=== PATIENT | female | born 1945 | race Caucasian/White ===

== ENCOUNTER 2017-01-10 15:17 | Emergency (ER) | payer MEDICARE, OTHER ==
[~2017-01-10] VITALS: Ht 162.6 cm; Wt 90.7 kg
[~2017-01-10 15:17] MED LIST: GLIM1TAB2 PO; METF10002 PO; PARO20TA55 PO; SIMV20TA3 PO
[2017-01-10 16:55] VITALS: BP 185/81
[2017-01-10] MEDS ORDERED: NAPROXEN 250 MG TABLET PO ONE (17:00)
[2017-01-10] MEDS ORDERED: NAPR250T2 PO (18:38)
--- NOTE | 2017-01-10 19:23 | ED.ADGEN ---
Past Medical History Past Medical History: Depression, Diabetes-Type II, Kidney Stone Past Surgical History: Other Additional Past Surgical Histo: kidney "stent" after kidney stone Alcohol Use: None Drug Use: None Adult General Chief Complaint Chief Complaint: LOWER EXTREMITY SWELLING HPI HPI Patient is a 71 year old woman, with a history of type 2 diabetes mellitus with peripheral neuropathy, renal calculi, who presents emergency Department with a complaint of pain and swelling in her right foot. Patient states that yesterday she was standing up, when her foot turned and she heard "a pop". She states that she noted significant swelling in the foot, with tenderness along the underside and lateral aspect of the foot. She states she has pain with any pressure, has been "hobbling along" on the foot since that time. She did use [id number] pain medications at home without relief. She denies any other areas of pain, states she did not fall down when this incident occurred. She states she is compliant with all her medications. Review of Systems Review of Systems Constitutional: Denies fever or chills. [] Eyes: Denies change in visual acuity. [] HENT: Denies nasal congestion or sore throat. [] Respiratory: Denies cough or shortness of breath. [] Cardiovascular: Denies chest pain or edema. [] GI: Denies abdominal pain, nausea, vomiting, bloody stools or diarrhea. [] : Denies dysuria. [] Musculoskeletal: Denies back pain or joint pain. [] Integument: Denies rash. [] Neurologic: Denies headache, focal weakness or sensory changes. [] Endocrine: Denies polyuria or polydipsia. [] Lymphatic: Denies swollen glands. [] Psychiatric: Denies depression or anxiety. [] Current Medications Current Medications Current Medications Medications (Trade) Dose Ordered Sig/Keshav Start Time Stop Time Status Last Admin Dose Admin Naproxen (Naprosyn) 250 mg 1X ONCE 01/10/17 17:00 01/10/17 17:01 DC 01/10/17 17:46 250 MG Allergies Allergies Allergies Coded Allergies Type Severity Reaction Last Updated Verified No Known Drug Allergies 03/30/14 No Physical Exam Physical Exam Constitutional: Well developed, well nourished, no acute distress, non-toxic appearance. [] HENT: Normocephalic, atraumatic, bilateral external ears normal, oropharynx moist, no oral exudates, nose normal. [] Eyes: PERRLA, EOMI, conjunctiva normal, no discharge. [] Neck: Normal range of motion, no tenderness, supple, no stridor. [] Cardiovascular:Heart rate regular rhythm, no murmur, S1, S2, no rubs or gallops. [] Lungs & Thorax: Bilateral breath sounds clear to auscultation, no wheezing, rhonchi, rales. No chest tenderness or crepitus. [] Abdomen: Bowel sounds normal, soft, no tenderness, no masses, no pulsatile masses. [] Skin: Warm, dry, no erythema, no rash. [] Back: No tenderness, no CVA tenderness. [] Extremities: Patient with swelling noted from the midfoot extending up towards the ankle, most significantly in the dorsal aspect of the foot. Patient able to range the foot without issue, but has pain with weightbearing, unable to tolerate ambulation. Patient also swelling noted in the ankle, other is no bony point tenderness in this area. No external signs of trauma, no lesions. Patient with tenderness throughout the midfoot. No crepitus No cyanosis, no clubbing, no other Neurologic: Alert and oriented X 3, normal motor function, normal sensory function, no focal deficits noted. [] Psychologic: Affect normal, judgement normal, mood normal. [] EKG EKG Not indicated. [] Radiology/Procedures Radiology/Procedures Right ankle x-ray: Three-view: No fracture or subluxation identified, degenerative changes noted, no acute soft tissue or bony abnormalities. As interpreted by me. Right foot x-ray: Three-view: No fracture subluxation identified, patient with degenerative changes, no acute bony abnormalities. Mild soft tissue swelling. As interpreted by me.[] Course & Med Decision Making Course & Med Decision Making Pertinent Labs and Imaging studies reviewed. (See chart for details) Patient's examination is concerning for sprain versus fracture. X-ray obtained of the ankle and foot dislocation patient's pain and injuries. Patient is noted to have some mild neuropathy, although sensation is intact during my examination. X-rays reveal evidence of degenerative changes but no acute fracture. Patient had an Abraham wrap applied in the ED for a sprain, did attempt to ambulate with crutches, but was experiencing difficulty, concern for her ability to ambulate safely using crutches. After discussion, patient was written a prescription for a rolling knee walker, instructed to proceed to the 24-hour [facility] pharmacy in order to fill the prescription, and potentially rent this device for use until she is able to follow-up with orthopedics for additional evaluation. Patient states she will follow-up with her doctor later this week, and was also in contact information for Dr. Altman of orthopedics for additional evaluation as needed. Patient instructed to continue use over-the -counter acetaminophen, and naproxen as directed, she was given clear and detailed medication and return precautions with which she voiced understanding and agreement. Patient discharged home in stable condition with her granddaughter with plan as above. Dragon Disclaimer Dragon Disclaimer This electronic medical record was generated, in whole or in part, using a voice recognition dictation system. Departure Impression: Primary Impression: Right foot sprain Disposition: HOME, SELF-CARE Condition: IMPROVED Scripts Naproxen 250 Mg [id number] Mg PO PRN BID PRN PAIN #10 Prov:CRUZ ROBBINS DO 01/10/17 CRUZ ROBBINS DO Jan 10, 2017 19:23
--- NOTE | 2017-01-11 08:44 | RAD ---
Right ankle, 3 views, 01/10/2017: History: Swelling and pain, injury No acute fracture or dislocation is identified. There is moderate spurring at the ankle joint as well as at the midfoot level. There are tendinous calcifications at the Achilles tendon level. There is extensive soft tissue swelling about the ankle. IMPRESSION: 1. Moderate degenerative change. 2. No acute bony abnormality is detected. Right foot, 3 views, 01/10/2017: No acute fracture or dislocation is identified. There are degenerative changes at scattered interphalangeal joints and the first MTP joint. There is moderate diffuse soft tissue swelling about the foot. IMPRESSION: 1. Degenerative change. 2. No acute bony abnormality is detected.
== END 2017-01-10 19:03 | disposition home or self-care (01) ==
LOC: ER 15:17
DX: S93.601A Unspecified sprain of right foot, initial encounter (principal); E11.42 Type 2 diabetes mellitus with diabetic polyneuropathy; F32.9 Major depressive disorder, single episode, unspecified; Z87.442 Personal history of urinary calculi; X58.XXXA Exposure to other specified factors, initial encounter; Y93.89 Activity, other specified; Y92.89 Other specified places as the place of occurrence of the external cause; Y99.8 Other external cause status
CPT/HCPCS: 73610; 73630; 99284